=== PATIENT | female | born 1960 | race Caucasian/White ===

== ENCOUNTER 2024-03-07 05:47 | Emergency (ER) | payer MEDICARE, OTHER, SELFPAY ==
[2024-03-07 05:49] VITALS: BP 166/72
[2024-03-07 06:04] VITALS: BP 161/60
[2024-03-07 06:27] VITALS: BMI 20.5
--- NOTE | 2024-03-07 06:28 | ED.GENMED ---
History of Present Illness
General
Chief Complaint: Abdominal Pain
Source: patient
Time Seen by Provider: 03/07/24 06:12
Travel History
Have you had any contact with someone who has COVID-19?: No
Do you have any symptoms of coronavirus? Fever > 100 degrees, chills, cough, shortness of breath, sore throat, loss of taste or smell, muscle aches, or headache?: No
History of Present Illness
History of Present Illness:
64-year-old female presents to the emergency room complaining of crampy abdominal pain. Pain began around 2:00 in the morning and has been occurring since then. No fever or chills. No nausea vomiting or diarrhea. Patient does occasionally get
crampy abdominal pain that typically goes away with Gas-X. Today she took Gas-X without improvement. 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 She states she has essentially
normal renal function.
Past History
Past History
ED Past Medical History: Other (palpitations)
ED Past Surgical History: Other (oral surgery)
Social History
Tobacco: Non-smoker
Alcohol: None
Personal:
Living: with family
Family History
Family History: Early CAD
Phy Exam
Physical Exam
Physical Exam:
General: Awake, Alert, Oriented X3. No acute distress.
Vitals: unremarkable
Head: Atraumatic
Eyes: Pupils equal, EOMI
Throat: Airway intact, no exudates
Neck: Trachea midline
Lungs: Clear and equal b/l
Heart: Regular rate, no murmurs
Abd: Soft, Nontender, No pulsatile mass
Back: No CVA tenderness to percussion
Neuro: Nonfocal
Skin: Warm, dry, no rash
Extremities: pulses equal b/l, no edema
Course
Orders/Labs/Results
Orders:
Orders
04/24/24 06:26
0.9% Sodium Chloride 1000 ml [Nss] 1,000 ml IV BOLUS
03/07/24 06:27
Dicyclomine [Bentyl] 20 mg PO NOW STA
03/07/24 06:28
Complete Blood Count/With Diff Urgent
Comprehensive Metabolic Panel Urgent
Lipase Urgent
Abnormal Lab Results
03/07/24
06:28
MPV 11.6 H fL
(7.4-10.4)
Chloride 108 H mmol/L
(98-107)
BUN 20 H mg/dl
(7-17)
Glucose 107 H mg/dl
(70-99)
03/07/24 06:28
03/07/24 06:28
Vital Signs
Initial and Last Documented VS:
Initial Vital Signs
Temp Pulse Resp BP Pulse Ox
97.9 F 80 20 166/72 98
03/07/24 05:49 03/07/24 05:49 03/07/24 05:49 03/07/24 05:49 03/07/24 05:49
Last Documented Vital Signs
Temp Pulse Resp BP Pulse Ox
98.1 F 86 16 136/71 99
03/07/24 08:44 03/07/24 08:44 03/07/24 08:44 03/07/24 08:44 03/07/24 08:44
MDM/Problems Addressed
Differential Diagnosis Includes:
Diverticulitis, cholecystitis, kidney stone, intestinal colic
MDM/Problems Addressed:
Patient presents with abdominal pain. Her physical exam is benign. Labs are unremarkable. Patient had complete resolution of discomfort with Bentyl. Stable for discharge on clear liquid diet. Follow-up primary care provider.
*Pulse Oximetry
Patient hypoxic: no
*Critical Care Note
Total Time (30-74mins, 75-104mins- exclusive of procedures): Not Applicable
ED Attending Note
-
Portions of this chart may have been created with voice recognition software.� Occasional wrong word or��sound alike� substitutions may have occurred due to the inherent limitations of voice recognition software.
Discharge Plan
Departure
Patient Disposition: Home (Routine Discharge)
Date of Disposition: 03/07/24
Time of Disposition: 08:15
Patient with high blood pressure during this ER visit?: No
Condition: Good
Discharge Problem:
Abdominal pain
Instructions: Abdominal Pain
Prescriptions:
New
dicyclomine 20 mg tablet
20 mg PO QID PRN (Reason: abdominal pain) Qty: 20 0RF
No Action
acetaminophen 325 MG tablet
325 mg PO PRN PRN (Reason: headaches)
Referrals:
Daylin Zuluaga PA-C [Family Provider] -
Thad Portillo MD [Active] -
Interventions
Interventions:
*Risk Screen - Suicide Last Done: 03/07/24 05:49
*General Assessment Last Done: 03/07/24 06:27
*Neglect/Abuse Screening Last Done: 03/07/24 05:49
ED- Fall Risk Assessment Last Done: 03/07/24 06:25
*ED COVID-19 Vaccine History Last Done: 03/07/24 08:45
*Nursing Disposition Last Done: 03/07/24 08:45
DP-Beezge-Ibswgvlufw Assessment Last Done: 03/07/24 08:44
Discharge Date and Time
Discharge Date/Time: 03/07/24 08:46
Print Language: JAPANESE
[2024-03-07] MEDS: BENTYL 20 MG PO (06:30)
[2024-03-07] MEDS: NSS 1000 IV (06:30)
[2024-03-07 06:38] LABS: % Basophils 0.6 % (0-2); % Eosinophils 3.1 % (0-6); % Immature Granulocytes 0.3 % (0-0.5); Absolute Basophils 0.1 10^3/uL (0-0.2); Absolute Eosinophils 0.2 10^3/uL (0-0.7); Absolute Monocytes 0.4 10^3/uL (0.1-0.6); Absolute Neutrophils 5.1 10^3/uL (1.4-6.5); Hematocrit 43.9 % (37.0-47.0); Hemoglobin 15.2 g/dL (12.0-16.0); Mean Corp Hgb Conc. 34.6 g/dL (33.0-37.0); Mean Corpuscular Hgb 30.5 pg (27.0-31.0); Mean Corpuscular Volume 88.2 fL (81.0-99.0); Mean Platelet Volume 11.6 fL (7.4-10.4); Nucleated Red Blood Cells % 0 %; Platelet Count 147 10^3/uL (130-400); Red Blood Cell Count 4.98 10^6/uL (4.20-5.40); Red Cell Dist. Width 12.1 % (11.5-14.5); White Blood Cell Count 7.8 10^3/uL (4.8-10.8)
[2024-03-07 06:47] LABS: ALT (SGPT) 20 U/L (0-35); AST (SGOT) 30 U/L (14-36); Albumin 4.4 g/dl (3.5-5.0); Alkaline Phosphatase 68 U/L (38-126); Blood Urea Nitrogen 20 mg/dl (7-17); Calcium 9.4 mg/dl (8.4-10.2); Carbon Dioxide 27 mmol/L (22-30); Chloride 108 mmol/L (98-107); Estimated Creatinine Clearance 43 ml/min; Glucose 107 mg/dl (70-99); Lipase 225 U/L (23-300); Potassium 4.3 mmol/L (3.5-5.1); Total Bilirubin 0.6 mg/dl (0.2-1.3); eGFR > 60.00
[2024-03-07 06:53] LABS: Sodium 140 mmol/L (135-145)
[2024-03-07 07:00] VITALS: BP 139/59
[2024-03-07 08:00] VITALS: BP 126/59
[2024-03-07 08:44] VITALS: BP 136/71
== END 2024-03-07 08:46 | disposition home or self-care (01) ==
LOC: EMR 05:47
PROVIDERS: EMERGENCY PHYSICIAN Emergency Medicine; FAMILY PHYSICIAN Student in an Organized Health Care Education/Training Program
DX: R10.9 Unspecified abdominal pain (principal); R25.2 Cramp and spasm; Z90.49 Acquired absence of other specified parts of digestive tract; Z90.5 Acquired absence of kidney
CPT/HCPCS: 99283; 80053; 83690; 85025

== ENCOUNTER → 2024-03-14 10:51 | Outpatient (REF) | payer MEDICARE, OTHER, SELFPAY | LOC: HWRAD 10:51 | PROVIDERS: ATTENDING PHYSICIAN Student in an Organized Health Care Education/Training Program | DX: R10.9 Unspecified abdominal pain (principal); R10.13 Epigastric pain; K44.9 Diaphragmatic hernia without obstruction or gangrene | CPT/HCPCS: 76700 ==

== ENCOUNTER → 2024-03-20 12:08 | Outpatient (REF) | payer MEDICARE, OTHER, SELFPAY | LOC: HWWDC 12:08 | PROVIDERS: ATTENDING PHYSICIAN Obstetrics & Gynecology; FAMILY PHYSICIAN Student in an Organized Health Care Education/Training Program | DX: Z12.31 Encounter for screening mammogram for malignant neoplasm of breast (principal) | CPT/HCPCS: 77063; 77067 ==

== ENCOUNTER → 2024-06-25 10:58 | Outpatient (REF) | payer MEDICARE, OTHER, SELFPAY | LOC: HWRAD 10:58 | PROVIDERS: ATTENDING PHYSICIAN Student in an Organized Health Care Education/Training Program | DX: E04.1 Nontoxic single thyroid nodule (principal) | CPT/HCPCS: 76536 ==

== ENCOUNTER → 2024-06-29 07:39 | Outpatient (REF) | payer MEDICARE, OTHER, SELFPAY | LOC: WDC 07:39 | PROVIDERS: ATTENDING PHYSICIAN Student in an Organized Health Care Education/Training Program | DX: N64.4 Mastodynia (principal) | CPT/HCPCS: 76642 ==

== ENCOUNTER → 2024-09-11 06:39 | Day surgery (SDC) | payer MEDICARE, OTHER, SELFPAY | LOC: GI 06:39 | PROVIDERS: ATTENDING PHYSICIAN Student in an Organized Health Care Education/Training Program | DX: K44.9 Diaphragmatic hernia without obstruction or gangrene (principal); K31.7 Polyp of stomach and duodenum; K31.89 Other diseases of stomach and duodenum; R10.13 Epigastric pain | CPT/HCPCS: 43239; 88305; 88342 ==

== ENCOUNTER → 2024-09-28 14:50 | Outpatient (REF) | payer MEDICARE, OTHER, SELFPAY | LOC: HWRAD 14:50 | PROVIDERS: ATTENDING PHYSICIAN Student in an Organized Health Care Education/Training Program | DX: M79.89 Other specified soft tissue disorders (principal) | CPT/HCPCS: 73140 ==

== ENCOUNTER 2025-01-04 06:26 | Day surgery (SDC) | payer MEDICARE, OTHER, SELFPAY | END 2025-01-04 15:09 | disposition home or self-care (01) | LOC: GI 06:26 | PROVIDERS: ATTENDING PHYSICIAN Student in an Organized Health Care Education/Training Program | DX: R10.84 Generalized abdominal pain (principal); Z98.0 Intestinal bypass and anastomosis status; K64.0 First degree hemorrhoids; K57.30 Diverticulosis of large intestine without perforation or abscess without bleeding; K64.4 Residual hemorrhoidal skin tags; K76.89 Other specified diseases of liver; K63.5 Polyp of colon | CPT/HCPCS: 45380; 88305 ==

== ENCOUNTER → 2025-01-16 07:16 | Outpatient (REF) | payer MEDICARE, OTHER, SELFPAY | LOC: HWRAD 07:16 | PROVIDERS: ATTENDING PHYSICIAN Student in an Organized Health Care Education/Training Program; FAMILY PHYSICIAN Student in an Organized Health Care Education/Training Program | DX: R10.84 Generalized abdominal pain (principal); K76.89 Other specified diseases of liver | CPT/HCPCS: 76700 ==

== ENCOUNTER → 2025-03-13 07:20 | Outpatient (REF) | payer MEDICARE, OTHER, SELFPAY | LOC: HWRCS 07:20 | PROVIDERS: ATTENDING PHYSICIAN Internal Medicine Cardiovascular Disease; FAMILY PHYSICIAN Student in an Organized Health Care Education/Training Program | DX: R07.9 Chest pain, unspecified (principal) | CPT/HCPCS: 78452; 93017; A9500 ==

== ENCOUNTER → 2025-04-09 14:37 | Outpatient (REF) | payer MEDICARE, OTHER, SELFPAY | LOC: HWWDC 14:37 | PROVIDERS: ATTENDING PHYSICIAN Obstetrics & Gynecology; FAMILY PHYSICIAN Student in an Organized Health Care Education/Training Program | DX: Z12.31 Encounter for screening mammogram for malignant neoplasm of breast (principal) | CPT/HCPCS: 77063; 77067 ==

== ENCOUNTER → 2025-04-18 10:16 | Outpatient (REF) | payer MEDICARE, OTHER, SELFPAY | LOC: HWRAD 10:16 | PROVIDERS: ATTENDING PHYSICIAN Physician Assistant Medical | DX: M79.645 Pain in left finger(s) (principal) | CPT/HCPCS: 73130 ==

== ENCOUNTER → 2025-09-23 09:21 | Outpatient (REF) | payer MEDICARE, OTHER, SELFPAY | LOC: HWRAD 09:21 | PROVIDERS: ATTENDING PHYSICIAN Internal Medicine; FAMILY PHYSICIAN Student in an Organized Health Care Education/Training Program | DX: M81.0 Age-related osteoporosis without current pathological fracture (principal); Z51.81 Encounter for therapeutic drug level monitoring | CPT/HCPCS: 77080 ==